=== PATIENT | male | born 1980 | race Caucasian/White ===

== ENCOUNTER 2016-11-28 20:29 | Emergency (ER) | payer SELFPAY ==
[~2016-11-28] VITALS: Ht 182.9 cm; Wt 120.7 kg
[2016-11-28] MEDS ORDERED: TETRACAINE 0.5% OPHTH SOLN 4ML OD ONE (23:15)
[2016-11-28] MEDS ORDERED: ERYTHROMYCIN OPHTH OINT OD ONE (23:30)
[2016-11-28 23:36] VITALS: BP 148/85
== END 2016-11-28 23:37 | disposition home or self-care (01) ==
LOC: M ED 20:29
DX: T15.01XA Foreign body in cornea, right eye, initial encounter (principal); Y92.89 Other specified places as the place of occurrence of the external cause; Y93.89 Activity, other specified; Y99.9 Unspecified external cause status